=== PATIENT | female | born 1955 | race Caucasian/White ===

== ENCOUNTER 2022-04-10 07:45 | Emergency (ER) | payer OTHER ==
[~2022-04-10] VITALS: Ht 149.9 cm; Wt 68.0 kg
[2022-04-10] MEDS ORDERED: LOSARTAN POTASS50 MG PO (07:54)
[2022-04-10] MEDS ORDERED: CRESTOR40 MG PO (07:54)
[2022-04-10] MEDS ORDERED: SYNTHROID50 MCG PO (07:54)
== END 2022-04-10 11:35 | disposition home or self-care (01) ==
LOC: ER 07:45
DX: M54.50 Low back pain, unspecified (principal); E03.9 Hypothyroidism, unspecified; I10 Essential (primary) hypertension; E78.00 Pure hypercholesterolemia, unspecified; M85.80 Other specified disorders of bone density and structure, unspecified site

== ENCOUNTER 2022-09-06 00:34 | Emergency (ER) | payer OTHER ==
[~2022-09-06] VITALS: Ht 149.9 cm; Wt 64.4 kg
[~2022-09-06 00:34] MED LIST: CRESTOR40 MG PO; LOSARTAN POTASS50 MG PO; SYNTHROID50 MCG PO
[2022-09-06] MEDS ORDERED: PEPCID40 MG PO (06:06)
[2022-09-06] MEDS ORDERED: ONDANSETRON ODT4 MG PO (06:06)
== END 2022-09-06 06:17 ==
LOC: ER 00:34
DX: R11.10 Vomiting, unspecified (principal); I10 Essential (primary) hypertension; E03.9 Hypothyroidism, unspecified

== ENCOUNTER → 2024-07-20 | Day surgery (SDC) | payer OTHER ==
[2024-07-18 09:19] LABS: HEMATOCRIT 38.4 % (36.0-45.00); HEMOGLOBIN 12.8 g/dL (12.0-15.00); MEAN CELL VOLUME 89.7 fL (80.00-100.00); MEAN CORPUSCULAR HEMOGLOBIN 29.8 pg (27.00-32.0); MEAN CORPUSCULAR HGB CONC 33.3 g/dl (32.0-36.0); PLATELET COUNT 250 K/uL (150-450); RED BLOOD COUNT 4.28 M/uL (4.00-6.00); RED CELL DISTRIBUTION WIDTH 13.6 % (11.5-14.5)
[2024-07-18 09:43] LABS: URINE APPEARANCE Clear; URINE BILIRRUBIN Negative (NEGATIVE); URINE BLOOD Negative; URINE COLOR Yellow; URINE GLUCOSE Negative (NEGATIVE); URINE KETONE Negative (NEGATIVE); URINE LEUKOCYTE Negative; URINE NITRATE Negative; URINE PROTEIN Negative (NEGATIVE); URINE UROBILINOGEN 0.2 E.U./dl
[2024-07-18 09:49] LABS: URINE BACTERIA 337.6 uL (0.0-1933); URINE EPITHELIAL CELLS 14.9 uL (0.0-38.8); URINE RBC 2.2 uL (0.0-20.8)
[2024-07-18 09:58] LABS: URINE CAST 0.15 uL (0.0-1.40)
[2024-07-18 10:01] LABS: INR 1.1; PARTIAL THROMBOPLASTIN TIME 26.2 SECONDS (22.0-34.0); PROTHROMBIN TIME 11.9 SECONDS (9.0-11.5)
[2024-07-18 10:10] LABS: ALBUMIN 3.7 gm/dL (3.4-5.0); BILIRUBIN TOTAL 0.57 mg/dL (0.3-1.2); CALCIUM 9.7 mg/dL (8.5-10.1); CREATININE SERUM 0.76 mg/dL (0.55-1.02); GFR 75.46; POTASSIUM 3.74 mEq/L (3.5-5.1); TOTAL PROTEIN 7.7 gm/dL (6.4-8.2)
[2024-07-18 12:48] VITALS: BP 140/72
[~2024-07-20] MED LIST changes: +ANASTROZOLE1 MG PO; +CEFAZOLIN SODIUM 1,000 MG VIAL ONE; +CHLORHEXIDINE GLUCONATE 120 ML BOTTLE TOP ONE; +ONDANSETRON ODT4 MG PO; +PEPCID40 MG PO
== END | disposition home or self-care (01) ==
LOC: ADM 07-18 15:00 → CIR.AMB 06:00
PROVIDERS: ATTEND Surgery
DX: C50.412 Malignant neoplasm of upper-outer quadrant of left female breast (principal); C77.3 Secondary and unspecified malignant neoplasm of axilla and upper limb lymph nodes
CPT/HCPCS: 19301; 38525; A9541; L8699

== ENCOUNTER 2025-06-05 05:58 | Day surgery (SDC) | payer OTHER ==
[2025-05-28 13:42] VITALS: BP 138/65
[~2025-06-05] VITALS: Ht 149.9 cm; Wt 60.8 kg
[~2025-06-05 05:58] MED LIST changes: -CEFAZOLIN SODIUM 1,000 MG VIAL ONE; -CHLORHEXIDINE GLUCONATE 120 ML BOTTLE TOP ONE
== END 2025-06-05 12:45 | disposition home or self-care (01) ==
LOC: CIR.AMB 05:58
PROVIDERS: ATTEND Surgery Surgery of the Hand
DX: M67.842 Other specified disorders of synovium, left hand (principal)